=== PATIENT | male | born 1960 | race African-American/Black ===

== ENCOUNTER 2024-05-05 21:14 | Inpatient (IN) | payer BC, SELFPAY ==
[2024-05-05] VITALS (9 sets, daily range): BP systolic 132–169; BP diastolic 76–131; BMI 25.8; BMI 25.0
[2024-05-05 16:26] LABS: % Basophils 0.2 % (0-2); % Eosinophils 0.7 % (0-6); % Immature Granulocytes 0.4 % (0-0.5); % Lymphocytes 15.2 % (20.5-51.1); % Monocytes 6.6 % (1.7-9.3); % Neutrophils 76.9 % (42.2-75.2); Absolute Eosinophils 0.1 10^3/uL (0-0.7); Absolute Lymphocytes 1.5 10^3/uL (1.2-3.4); Absolute Monocytes 0.7 10^3/uL (0.1-0.6); Absolute Neutrophils 7.7 10^3/uL (1.4-6.5); Hematocrit 45.4 % (39.0-52.0); Hemoglobin 16.1 g/dL (13.0-18.0); Mean Corp Hgb Conc. 35.5 g/dL (33.0-37.0); Mean Corpuscular Hgb 32.5 pg (27.0-31.0); Mean Corpuscular Volume 91.5 fL (80.0-94.0); Nucleated Red Blood Cells % 0 % (-); Platelet Count 208 10^3/uL (130-400); Red Blood Cell Count 4.96 10^6/uL (4.70-6.10); Red Cell Dist. Width 12.4 % (11.5-14.5)
[2024-05-05 16:49] LABS: ALT (SGPT) 84 U/L (0-50); AST (SGOT) 46 U/L (17-59); Alkaline Phosphatase 119 U/L (38-126); Blood Urea Nitrogen 15 mg/dl (9-20); Calcium 10.5 mg/dl (8.4-10.2); Carbon Dioxide 21 mmol/L (22-30); Chloride 106 mmol/L (98-107); Glucose 106 mg/dl (70-99); Lipase 31 U/L (23-300); Potassium 3.7 mmol/L (3.5-5.1); Sodium 141 mmol/L (135-145); eGFR > 60.00
[2024-05-05] MEDS: NSS 1000 IV ×2 (17:22→20:31)
[2024-05-05] MEDS: DILAUDID 0.5 MG IV ×2 (17:23→18:37)
--- NOTE | 2024-05-05 17:23 | ED.GENMED ---
History of Present Illness
General
Chief Complaint: Abdominal Symptoms
Source: patient and spouse
Exam Limitations: none
Time Seen by Provider: 05/05/24 17:06
Nursing documentation reviewed up to this point in time: agreed with
History of Present Illness
History of Present Illness:
63-year-old male with past medical history of hypertension, hyperlipidemia, prior hernia repair presents to the emergency room for evaluation of abdominal pain. Symptoms started this morning and have been constant and worsening since that time.
Pain located periumbilical region and radiates diffusely. No clear triggering or relieving factors noted. He did have diarrhea earlier this morning but since then has not been able to pass gas and has not had additional bowel movement. He has
been dry heaving but no vomiting prior to arrival here; shortly after arrival in the ER he did have large-volume emesis. Reports stomach was mildly unsettled yesterday but symptoms essentially started today. He has had issues with digestion in the
past is on Creon and omeprazole and has been following with GI through [facility].
Review of Systems
Review of Systems
All Other Systems: ROS reviewed and negative except as documented in HPI and ROS
Constitutional: Denies fever or chills
Respiratory: Denies trouble breathing
Cardiac: Denies chest pain
ABD/GI: Reports abdominal pain, nausea, vomiting and diarrhea
: Denies flank pain
Musculoskeletal: Denies neck pain or back pain
Neurological: Denies headache
Phy Exam
Physical Exam
Physical Exam:
General: Awake, alert, appears uncomfortable moaning in pain
Head: Normocephalic, atraumatic
Eyes: Conjunctiva normal, sclera anicteric
Throat: Airway intact, handling secretions
Neck: Trachea midline
Lungs: Clear to auscultation bilaterally, no wheezing, rales, rhonchi
Heart: Regular rate and rhythm, no murmurs, gallops, or rubs
Abd: Soft, mildly distended and tympanic, diffusely tender maximal in the epigastrium with no palpable masses
Neuro: No gross deficits
Extremities: No edema in extremities, warm and well-perfused
Scores
Heart Failure Risk
Heart Failure Risk Score: Not Applicable
Heart Score for Chest Pain Patients
STEMI patient?: Not applicable
Withdrawal Assessment of Alcohol
Withdrawal Assessment Completed?: Not applicable
Course
Orders/Labs/Results
Orders:
Orders
05/05/24 16:17
Complete Blood Count/With Diff Urgent
Comprehensive Metabolic Panel Urgent
Lipase Urgent
05/05/24 17:13
CT Abd/pelvis W Iv Cont Urgent
Comment:
Reason For Exam: abd pain, diffuse tenderness; constipation
Urinalysis Reflex To Culture Urgent
0.9% Sodium Chloride 1000 ml [Nss] 1,000 ml IV BOLUS
HYDROmorphone [Dilaudid] 0.5 mg IV NOW STA
05/05/24 17:14
CR Chest Portable - 1 View Urgent
Comment:
Reason For Exam: r/o free air
Reason Study Needs to be Portable: Unable to Transport
05/05/24 17:22
Ondansetron Injectable [Zofran] 4 mg IV NOW STA
05/05/24 18:29
NG Tube [GI tube insertion- Treatment] ONCE
HYDROmorphone [Dilaudid] 0.5 mg IV NOW STA
05/05/24 18:32
Lactate Level [Lactic Acid] Urgent
05/05/24 18:45
0.9% Sodium Chloride 1000 ml [Nss] 1,000 ml IV 125 mls/hr
05/05/24 19:03
CR Chest Portable - 1 View Urgent
Comment:
Reason For Exam: NG tube
Reason Study Needs to be Portable: Unable to Transport
Abnormal Lab Results
05/05/24
16:17
MCH 32.5 H pg
(27.0-31.0)
Absolute Neuts (auto) 7.7 H 10^3/uL
(1.4-6.5)
Absolute Monos (auto) 0.7 H 10^3/uL
(0.1-0.6)
Neutrophils % 76.9 H %
(42.2-75.2)
Lymphocytes % 15.2 L %
(20.5-51.1)
Carbon Dioxide 21 L mmol/L
(22-30)
Glucose 106 H mg/dl
(70-99)
Calcium 10.5 H mg/dl
(8.4-10.2)
ALT 84 H U/L
(0-50)
05/05/24 16:17
05/05/24 16:17
Vital Signs
Initial and Last Documented VS:
Initial Vital Signs
Temp Pulse Resp BP Pulse Ox
36.9 C 78 18 161/131 100
05/05/24 15:56 05/05/24 15:56 05/05/24 15:56 05/05/24 15:56 05/05/24 15:56
Last Documented Vital Signs
Temp Pulse Resp BP Pulse Ox
36.9 C 81 15 145/83 100
05/05/24 15:56 05/05/24 18:15 05/05/24 17:53 05/05/24 18:00 05/05/24 18:15
MDM/Problems Addressed
Differential Diagnosis Includes:
Perforated viscus (perforated ulcer, bowel perforation,etc), bowel obstruction, pancreatitis, cholelithiasis/cholecystitis
MDM/Problems Addressed:
63-year-old male presents for evaluation of abdominal pain associate with nausea, vomiting; had diarrhea this morning but since then has not passed gas or bowel movement. Hypertensive otherwise normal vitals. Physical exam as above. Call for stat
chest x-ray to rule out free air. Place IV send labs including CBC and a CMP, lipase. Send for CT abdomen pelvis. Provide fluids, pain control, antiemetic. Monitor very closely reassess after the above.
Labs reviewed: CBC and CMP no clinically significant abnormalities. Chest x-ray shows no free air. CT pending.
CT shows small bowel obstruction. Repeat pain medication. Place NG tube. Continue fluids. Discussed with hospitalist for admission.
*Radiology
Radiology exam reviewed: preliminary read by ED provider and radiology read reviewed
*Pulse Oximetry
Patient hypoxic: no
*Critical Care Note
Total Time (30-74mins, 75-104mins- exclusive of procedures): Not Applicable
Data Reviewed
Source: patient and spouse
Patient Management
Discussion with other providers: Hospitalist (Discussed with hospitalist)
Escalation/DeEscalation of care consider admission/obs:
Admission indicated
ED Attending Note
-
Portions of this chart may have been created with voice recognition software.� Occasional wrong word or��sound alike� substitutions may have occurred due to the inherent limitations of voice recognition software.
Discharge Plan
Departure
Patient Disposition: Admit
Date of Disposition: 05/05/24
Time of Disposition: 18:32
Admit to doctor: Harper
Presentation/result/management discussed w/ accepting MD/DO: Hospitalist
Discharge Problem:
Small bowel obstruction
Prescriptions:
No Action
atorvastatin 20 mg Tablet
20 mg PO DAILY
metoprolol succinate 25 mg Tablet Extended Release 24 Hr
25 mg PO DAILY
omeprazole 20 mg Tablet,Delayed Release (Dr/Ec)
20 mg PO DAILY
Creon 36,000-114,000- 180,000 unit Capsule,Delayed Release(Dr/Ec)
2 cap PO TID
Patient Comments:
take 2 caps by mouth with each meal and 1 cap by moouth with snack
Referrals:
Zion Machado MD [Family Provider] -
Interventions
Interventions:
*Risk Screen - Suicide Last Done: 05/05/24 15:56
*General Assessment Last Done: 05/05/24 15:56
*ED- Fall Risk Assessment Last Done: 05/05/24 15:56
*ED COVID-19 Vaccine History Last Done: 05/05/24 15:56
ZA-Xqpnck-Jmlqmzzkor Assessment Last Done: 05/05/24 17:08
Discharge Date and Time
Print Language: MALTESE
[2024-05-05] MEDS: ZOFRAN 4 MG IV ×2 (17:27→19:17)
[2024-05-05 19:33] LABS: Lactic Acid 1.8 mmol/L (0.7-2.0)
--- NOTE | 2024-05-05 19:39 | HPS.HSE ---
Family Physician
-
Family Physician: Zion Machado
Chief Complaint
-
stomach pain
History of Present Illness
Patient is a 63-year-old male with past medical history significant for hypertension and hyperlipidemia who presented to [facility] ED for evaluation of stomach pain. Patient stated that he has been having stomach and bowel problems for a
few months, he is seeing a GI doctor in [place] and could not remember his name. He has been having recurrent diarrhea where he has been using Creon and PRN psyllium powder and/or Imodium. Patient reports that he felt his stomach had mild
discomfort yesterday but got significant worse today. He reports pain in the periumbilical area but does report it radiates all over. Nausea was associated with the discomfort but did not have episodes of vomiting at home. He did have diarrhea this
morning and took psyllium powder and Imodium. Following taking those medications the abdominal pain became severe and he came to ED for evaluation. Patient denies any recent fevers, chills, cough, shortness of breath, chest pain, or urinary
symptoms.
Medical History
Past Medical History
Past Medical History: Reports Other
Additional Past Medical History:
hypertension
hyperlipidemia
Past Surgical History: Reports Other
Additional Past Surgical History:
hernia repair
Social History
Tobacco: Former Smoker (quit 30 years ago )
Alcohol: Former (sober for 4 years )
Drug: None
Personal:
Living: With Family
Employment: Employed
Family History
Family History: Other (Father: CKD; Brother: kidney transplant; Maternal family with CVAs)
Allergies / Home Medications
Allergies reflects when Allergies were last updated in [facility].
Home Medications with original date entered in [facility]
Allergy/Medication List:
Allergies
Allergy/AdvReac Type Severity Reaction Status Date / Time
No Known Allergies Allergy Verified 05/05/24 17:04
Home Medications
atorvastatin 20 mg tablet 20 mg PO DAILY 05/05/24
sxatlq-utfxseay-gqxlhoo 36,000-114,000-180,000 unit capsule,delay rel (Creon) 2 cap PO TID 05/05/24
metoprolol succinate 25 mg tablet,extended release 24 hr 25 mg PO DAILY 05/05/24
omeprazole 20 mg tablet,delayed release 20 mg PO DAILY 05/05/24
Review of Systems
-
History Source: Patient
Constitutional: Reports No Symptoms
EENT: Reports No Symptoms
Respiratory: Reports No Symptoms
Cardiac: Reports No Symptoms
Abdomen/GI: Reports Abdominal Pain, Nausea, Vomiting and Diarrhea
: Reports No Symptoms
Musculoskeletal: Reports No Symptoms
Skin: Reports No Symptoms
Neurological: Reports No Symptoms
Endocrine: Reports No Symptoms
Hematologic/Lymphatic: Reports No Symptoms
Psych: Reports No Symptoms
Physical Exam
Vital Signs
Vital Signs
Temp Pulse Resp BP Pulse Ox
98.5 F 81 15 145/83 100
05/05/24 15:56 05/05/24 18:15 05/05/24 17:53 05/05/24 18:00 05/05/24 18:15
Physical Exam
General: Well Developed, Well Nourished, No Apparent Distress and Conversant
HEENT: NormoCephalic, Moist mucous membranes, Atraumatic, PERRLA, [place] Conjunctivae, Nose Appears Normal and Ears Appear Normal
Respiratory: Clear and Non Labored Respirations
Cardiac: S1/S2 and Regular Rhythm; No Murmur, Rub or Gallop
GI: Soft, Tender and Distended (mildly ); No Organomegaly
Rectal: Deferred by Provider
Genito-urinary: Deferred by me
Musculoskeletal: No Clubbing, No Cyanosis and No Edema
Skin: Warm and IV/Catheter Site; No Rash
Neuro: Awake, Alert, AO x 3 and Nonfocal/grossly intact
Psych: Calm and Intact Judgment/Insight
Laboratory Results
-
05/05/24 16:17
05/05/24 16:17
Laboratory Results
Lactic Acid 1.8 mmol/L (0.7-2.0) 05/05/24 19:16
Total Bilirubin 1.0 mg/dl (0.2-1.3) 05/05/24 16:17
AST 46 U/L (17-59) 05/05/24 16:17
ALT 84 U/L (0-50) H 05/05/24 16:17
Alkaline Phosphatase 119 U/L (38-126) 05/05/24 16:17
Lipase 31 U/L (23-300) 05/05/24 16:17
Data Reviewed
-
Diagnostic Radiology: Report Reviewed by me (CXR: No acute cardiopulmonary process. NG tube in stomach.)
CT Scan: Report Reviewed by me (Abd/Pel: 1. Distal small bowel obstruction likely secondary to adhesion.)
Lab Data: Labs Reviewed by me
Impression/Plan
-
IMPRESSION/PLAN:
#small bowel obstruction
Abd/Pel CT: 1. Distal small bowel obstruction likely secondary to adhesion.
CXR: No acute cardiopulmonary process. NG tube in stomach.
- Admit to med/surg
- NPO
- NGT
- Consult surgery
- IVF
- supportive care
#hypertension
- continue metoprolol
#hyperlipidemia
- continue atorvastatin
Code status: full code
DVT prophylaxis: SCDs
--- NOTE | 2024-05-05 20:37 | W.PN.UPDATE ---
Update Note
Progress Note Update
This is an addendum to the H&P written by Roxana Escalante on 05/05/2024. Patient seen and examined independently with CLINICAL STATISTICS MANAGER.
63-year-old male past medical history of hypertension, hypercholesteremia, right inguinal hernia repair, presenting with periumbilical abdominal pain for the past week. For the past few months he has been having diarrhea for which she has been
following [facility] who prescribed Creon with some improvement. He had vomiting today and a small bowel movement this morning.
CT abdomen pelvis shows distal small bowel obstruction likely secondary to adhesion. NG tube placed. N.p.o., IV fluids, Zofran/Dilaudid, general surgery consulted.
[2024-05-05] MEDS: HURRICAINE SPRAY 1 APPLIC TOPICAL (20:45)
--- NOTE | 2024-05-05 22:00 | PTCARENOTE ---
83-year-old male arrived from ED at 21:40 PMH of hypertension, hypercholesteremia, right inguinal hernia repair, presenting with periumbilical abdominal pain for the past week. For the past few months he has been having diarrhea for which she has
been following [facility] who prescribed Creon with some improvement. He had vomiting today and a small bowel movement this morning.CT abdomen pelvis shows distal small bowel obstruction likely secondary to adhesion. NG tube placed. N.P.O., IV
fluids, Zofran/Dilaudid, general surgery consulted. PT AOX3, HOB elevated above 30 degrees, bed in a low position, call light in reach, care on going.
[2024-05-06] MEDS: NSS 1000 IV ×2 (03:15→09:56)
[2024-05-06 07:08] VITALS: BP 140/78
--- NOTE | 2024-05-06 07:10 | PTCARENOTE ---
Pt repeatedly told me he could not urinate. I sent tech in to b/s pt and told her I was going to have to get an order to [place] him if he could not go & I needed a sample . He was able to void this time & she told me she sent the sample. When I saw that
the incomplete was still showing for urine I asked her again and she said she misunderstood & flushed his urine output. Dayshift nurse aware the urine still needs to be collected.
--- NOTE | 2024-05-06 08:08 | CON.GS ---
Medical History
-
Chief Complaint: Abdominal pain, nausea, vomiting
History of Present Illness:
Patient is a 63 yo M with a PMH of HTN, HLD, and s/p open RIGHT inguinal hernia repair with mesh who presents with acute on chronic GI issues. Mr. Mulligan states that he has had issues with diarrhea for several months now. He has been followed as an
outpatient by a GI physician at [place]. Details of outpatient workup are largely unknown, however, sounds as though he has had a colonoscopy which was unremarkable and a recent CT scan with oral and IV contrast. Mr. Mulligan denies any note of a
bowel obstruction with the prior CT scan. He has been managed medically with Creon, psyllium, and Imodium as needed. He states that over the past week he has had worsening crampy abdominal pain and discomfort. In retrospect, he has been taking
both psyllium and Imodium together which she has not done previously. Over the past 24 hours he has had worsening issues with crampy abdominal discomfort, nausea, vomiting. His last bowel movement and passage of flatus was yesterday morning.
Currently he feels improved, but not completely resolved. No fevers or chills. He denies any personal or family history of IBD or colon cancers.
Past Medical History
Past Medical History: HTN, Hypercholesterolemia and Other (Chronic diarrhea)
Past Surgical History: Hernia Repair (Open RIGHT inguinal hernia)
Social History
Tobacco: Former Smoker (Quit years ago)
Alcohol: Former (Quit 4 years ago)
Drug: None
Personal:
Living: With Family
Employment: Employed
Family History
Family History: Reviewed & Noncontributory
Allergies / Home Medications
Allergy/AdvReac Type Severity Reaction Status Date / Time
No Known Allergies Allergy Verified 05/05/24 17:04
�Medication �Instructions �Recorded �Confirmed �Type
atorvastatin 20 mg tablet 20 mg PO DAILY High Cholesterol 05/05/24 05/05/24 History
afwzfx-aacufich-bogmulw 2 cap PO TID Gastrointestinal Issue 05/05/24 05/05/24 History
36,000-114,000-180,000 unit
capsule,delay rel (Creon)
metoprolol succinate 25 mg 25 mg PO DAILY Heart 05/05/24 05/05/24 History
tablet,extended release 24 hr Disease/Condition
omeprazole 20 mg tablet,delayed 20 mg PO DAILY Gastrointestinal 05/05/24 05/05/24 History
release Issue
Review of Systems
-
A 10 point review of systems was completed, and was negative except as per HPI.
Physical Exam
Vital Signs
Temp Pulse Resp BP Pulse Ox
97.7 F 70 18 140/78 96
05/06/24 07:08 05/06/24 07:08 05/06/24 07:08 05/06/24 07:08 05/06/24 07:08
05/05/24 05/06/24 05/07/24
06:59 06:59 06:59
Actual Weight 82.327 kg
Body Mass Index (BMI) 25.0
Lab Results
WBC 10.0 10^3/uL (4.8-10.8) 05/05/24 16:17
Hgb 16.1 g/dL (13.0-18.0) 05/05/24 16:17
Hct 45.4 % (39.0-52.0) 05/05/24 16:17
Plt Count 208 10^3/uL (130-400) 05/05/24 16:17
Abs Immat Gran (auto) 0.0 10^3/uL (0-0.05) 05/05/24 16:17
Neutrophils % 76.9 % (42.2-75.2) H 05/05/24 16:17
Physical Exam
General: Well Developed, Well Nourished and No Apparent Distress
HEENT: Normocephalic, Anicteric and Other (NGT with non-bilious outputs)
GI: Soft, Non Tender, Distended (Mild, no tympany), Incisions (RLQ well healed) and Other (Non-peritoneal (no rebound or guarding))
Musculoskeletal: No Edema
Skin: Warm and Dry
Neuro: Nonfocal/Grossly Intact
Data Reviewed
-
Radiology: Image Personally Visualized and interpreted and Report Reviewed by me
CT Scan: Image Personally Visualized and interpreted and Report Reviewed by me
Labs: Labs Reviewed by me
Old Records: Reviewed
Assessment / Plan
-
Patient is a 63 yo M p/w SBO
Uncertain exact etiology, possibly secondary to adhesions though no prior abdominal surgical procedure. Symptoms appear to be more chronic in nature with a slow buildup and potentially worsening over the past week with taking antidiarrheal
medications. His CT scan demonstrates fecalization of the small bowel which further supports the more chronic nature of his presentation. Prior workup and management as an outpatient is unclear; request documentation from his GI physician. Signs
of symptomatic improvement. No plans for surgical intervention at this time. Recommend medical management with bowel rest and IVF resuscitation. If no symptomatic improvement by tomorrow then would plan for a SBFT. All questions answered.
-- NPO, IVF, NGT decompression
-- Hold on bowel meds
-- SBFT tomorrow if no clinical improvement
-- Request outpatient records from GI
[2024-05-06 08:34] LABS: Hematocrit 38.2 % (39.0-52.0); Hemoglobin 13.4 g/dL (13.0-18.0); Mean Corp Hgb Conc. 35.1 g/dL (33.0-37.0); Mean Corpuscular Hgb 33.3 pg (27.0-31.0); Mean Corpuscular Volume 94.8 fL (80.0-94.0); Mean Platelet Volume 9.2 fL (7.4-10.4); Platelet Count 181 10^3/uL (130-400); Red Blood Cell Count 4.03 10^6/uL (4.70-6.10); Red Cell Dist. Width 12.5 % (11.5-14.5); White Blood Cell Count 4.9 10^3/uL (4.8-10.8)
[2024-05-06 08:56] LABS: Blood Urea Nitrogen 12 mg/dl (9-20); Calcium 9.2 mg/dl (8.4-10.2); Carbon Dioxide 23 mmol/L (22-30); Chloride 110 mmol/L (98-107); Estimated Creatinine Clearance 67 ml/min; Glucose 93 mg/dl (70-99); Potassium 3.9 mmol/L (3.5-5.1); Sodium 141 mmol/L (135-145); eGFR > 60.00
[2024-05-06] MEDS: HURRICAINE SPRAY 1 APPLIC TOPICAL ×2 (09:56→21:43)
[2024-05-06 10:59] LABS: Urine Albumin Negative (Neg - Trace); Urine Bilirubin Negative (Negative); Urine Character Clear (Clear); Urine Color Yellow; Urine Glucose Negative (Negative); Urine Ketone 1+ (Negative); Urine Leukocyte Negative (Negative); Urine Nitrite Negative (Negative); Urine Occult Blood Negative (Negative); Urine Specific Gravity 1.015 (<1.030); Urine Urobilinogen Negative (Neg - 1+)
--- NOTE | 2024-05-06 12:36 | W.PN.HOSP.TC ---
Today's Communication/Plan
-
npo
ivf
ngt
Assessment / Plan
Assessment / Plan
General: Well Developed, Well Nourished, No Apparent Distress and Conversant
HEENT: NormoCephalic, Moist mucous membranes, Atraumatic, PERRLA, [place] Conjunctivae, Nose Appears Normal and Ears Appear Normal
Respiratory: Clear and Non Labored Respirations
Cardiac: S1/S2 and Regular Rhythm; No Murmur, Rub or Gallop
GI: Soft, Tender and Distended (mildly ); No Organomegaly, NGT noted
Musculoskeletal: No Clubbing, No Cyanosis and No Edema
Skin: Warm and IV/Catheter Site; No Rash
Neuro: Awake, Alert, AO x 3 and Nonfocal/grossly intact
Psych: Calm and Intact Judgment/Insight
#Small bowel obstruction likely 2/2 adhesions
Abd/Pel CT: 1. Distal small bowel obstruction likely secondary to adhesion.
CXR: No acute cardiopulmonary process. NG tube in stomach.
- NPO
- NGT
- IVF switch to LR. Decrease rate.
- Pain control.
- supportive care
-GS following. SBFT if no improvement noted
#hypertension
- IV prn bp meds
#hyperlipidemia
-hold po meds
Code status: full code
DVT prophylaxis: lovenox
d/w with spouse at bedside in details
Anticipated Discharge: > 48 hours
Subjective/Interval History
-
Date of Service: May 06, 2024
no flatulence or bm
denies abd pain
Objective Data
-
Labs:
Laboratory Results
05/06/24
08:01
WBC 4.9
Hgb 13.4
Hct 38.2 L
Plt Count 181
Sodium 141
Potassium 3.9
Chloride 110 H
Carbon Dioxide 23
BUN 12
Creatinine 1.2
Glucose 93
Calcium 9.2
Vital Signs:
Vital Signs
Temp Pulse Resp BP Pulse Ox
97.7 F 70 18 140/78 96
05/06/24 07:08 05/06/24 07:08 05/06/24 07:08 05/06/24 07:08 05/06/24 07:08
I&O
05/05/24 05/06/24 05/07/24
06:59 06:59 06:59
Intake Total 90 / 90
Output Total 275 / 325 50 / 50
Balance -275 / -235 40 / 40
[2024-05-06] MEDS: DILAUDID 0.5 MG IV ×2 (12:37→21:39)
[2024-05-06] MEDS: LR 1000 IV ×2 (12:46→22:43)
[2024-05-06 15:21] VITALS: BP 146/75
--- NOTE | 2024-05-06 15:50 | CM ---
Met with pt at bedside
IA completed
Pt lives with his in a 2 story condo; 2 steps to enter, 12 steps to 2nd fl
Independent, employed, drives
DME - none
SNF/HH - denies past hx
Has ride at D/C
PCP - Zion Machado
Pharm - [facility]
Plan - anticipate home no needs
[2024-05-06] MEDS: LOVENOX 40 MG SC (17:34)
[2024-05-06 23:48] VITALS: BP 125/68
[2024-05-07 07:20] VITALS: BP 140/83
--- NOTE | 2024-05-07 08:10 | PTCARENOTE ---
NGT removed per surgery during AM rounds. pt tolerted well. No c/O pain or nausea. trial CLD
--- NOTE | 2024-05-07 08:11 | CON.GS ---
Medical History
-
Chief Complaint: Abdominal pain, nausea, vomiting
History of Present Illness:
Patient is a 63-year-old male who presented to the emergency department with complaints of abdominal pain, nausea, and vomiting. He has a past medical history of hypertension, hyperlipidemia, s/p right open inguinal hernia repair with mesh, and
chronic GI issues. The patient has been contending with issues involving diarrhea for several months now. Patient denied any fever or chills. Patient denied any personal or family history of IBD or colon cancer. He is being followed by an
outpatient telesales agent in [place] - unfortunately his outpatient workup is unknown and we have requested records. He has been managed medically with Creon, psyllium fiber, and Imodium as needed. He believes that he had a CT of the abdomen
done prior to his presentation to the emergency department and he believes that CT scan did not show any bowel obstruction. Over the past week prior to his presentation to the emergency department he had worsening crampy abdominal pain and
discomfort. He had been taking both psyllium fiber and Imodium together which he did not do in the past and he believes that this might have been one of the causes that pushed him over the edge leading to his presentation to the emergency
department. Over the past 24 hours prior to his presentation he had crampy abdominal discomfort, nausea, and vomiting. His last bowel movement prior to his presentation was the morning prior to his arrival. By the time he arrived to the emergency
department his acute nausea and vomiting had improved but not completely resolved. In the emergency department his vitals were stable and lab work was unremarkable. Abdominal CT conducted in the emergency department showed distal small bowel
obstruction. Patient was admitted to [facility] for small bowel obstruction.
Past Medical History
Past Medical History: HTN, Hypercholesterolemia and Other (Chronic diarrhea)
Past Surgical History: Hernia Repair (Open RIGHT inguinal hernia)
Social History
Tobacco: Former Smoker (Quit years ago)
Alcohol: Former (Quit 4 years ago)
Drug: None
Personal:
Living: With Family
Employment: Employed
Family History
Family History: Reviewed & Noncontributory
Allergies / Home Medications
Allergy/AdvReac Type Severity Reaction Status Date / Time
No Known Allergies Allergy Verified 05/05/24 17:04
�Medication �Instructions �Recorded �Confirmed �Type
atorvastatin 20 mg tablet 20 mg PO DAILY High Cholesterol 05/05/24 05/05/24 History
[id number] 2 cap PO TID Gastrointestinal Issue 05/05/24 05/05/24 History
36,000-114,000-180,000 unit
capsule,delay rel (Creon)
metoprolol succinate 25 mg 25 mg PO DAILY Heart 05/05/24 05/05/24 History
tablet,extended release 24 hr Disease/Condition
omeprazole 20 mg tablet,delayed 20 mg PO DAILY Gastrointestinal 05/05/24 05/05/24 History
release Issue
Review of Systems
-
History Source: Patient
Constitutional: No Symptoms and Fatigue
EENT: No Symptoms
Respiratory: No Symptoms
Cardiac: No Symptoms
Abdomen/GI: Other (mild bloating with no pain)
: No Symptoms
Musculoskeletal: No Symptoms
Skin: No Symptoms
Neurological: No Symptoms
Subjective:
Patient feels better today but is complaining about irritation from his NGT. It bothers him when he swallows. Late afternoon yesterday he passed a joe stool that was not hard but normal consistency. There was no blood seen in the stool. Patient
has been passing flatus throughout yesterday afternoon into the evening and into the morning. Patient has gotten up and out of bed in order to go to the bathroom but has not done much physical activity outside of this. He continues to sip at ice
chips.
Physical Exam
Vital Signs
Temp Pulse Resp BP Pulse Ox
98.2 F 72 16 140/83 99
05/07/24 07:20 05/07/24 07:20 05/07/24 07:20 05/07/24 07:20 05/07/24 07:20
05/06/24 05/07/24 05/08/24
06:59 06:59 06:59
Actual Weight 82.327 kg
Body Mass Index (BMI) 25.0
Lab Results
05/06/24 08:01
WBC 4.9 10^3/uL (4.8-10.8) 05/06/24 08:01
Hgb 13.4 g/dL (13.0-18.0) 05/06/24 08:01
Hct 38.2 % (39.0-52.0) L 05/06/24 08:01
Plt Count 181 10^3/uL (130-400) 05/06/24 08:01
Abs Immat Gran (auto) 0.0 10^3/uL (0-0.05) 05/05/24 16:17
Neutrophils % 76.9 % (42.2-75.2) H 05/05/24 16:17
Physical Exam
General: Well Developed, Well Nourished, No Apparent Distress and Comfortable
HEENT: Normocephalic
Respiratory: Clear
Cardiac: S1/S2; Negative Murmur or Rub
GI: Soft, Non Tender, Non Distended and Normal Bowel Sounds
Rectal: Other (Pale/letty colored stool)
Musculoskeletal: No Clubbing, No Cyanosis and No Edema
Skin: Warm and Dry; Negative Rash or Jaundice
Neuro: Awake, Alert, Oriented and AO x 3
Psych: Calm
Assessment / Plan
-
Patient is a 63-year-old male who presented with small bowel obstruction.
Assessment/Plan:
-Small Bowel Obstruction:
Abdomen/pelvis CT conducted on 05/05/2024 showed dilated fluid-filled small bowel loops of the abdomen measuring up to 3.5 cm with a transition point in the low anterior right paramidline abdomen. No evidence of perforation or abscess. CT scan
demonstrates fecalization of the small bowel which supports chronic nature of his presentation. Possibly due to adhesions.
Patient is followed by an outpatient telesales agent�workup is unclear -awaiting outpatient records for further data
Patient shows signs of symptomatic improvement -no surgical intervention indicated
Patient was initially given bowel rest and IV resuscitation and has shown improvement
Discontinue NGT -unlikely that SBFT will be indicated
Continue to hold off bowel medications
Antiemetics and pain medication as needed
We have advanced the patient's diet from n.p.o. to clear liquids -if patient tolerates his advance diet we will reassess and continue to progress his diet
No plans for surgery currently
[2024-05-07] MEDS: LR 1000 IV (09:42)
--- NOTE | 2024-05-07 09:42 | W.PN.GS2 ---
Addendum entered and electronically signed by Pako Blanchard MD 05/07/24 09:59:
Patient seen and examined.
Reports improvement from yesterday. Passing flatus and had a nonbloody, rf microwave engineer appearing BM. No nausea or vomiting. No increased abdominal distention. No fevers.
Gen: NAD
HEENT: NGT output non-bilious
Abd: soft, NT/ND, no tympany, non-peritoneal
Patient is a 63 yo M p/w partial bowel obstruction, acute on chronic likely secondary to dysmotility and bowel meds
AVSS
Labs pending
Clinical improvement. Plan to DC NGT and trial clears. If any further issues would recommend a contrasted study.
-- DCT NGT
-- Trial of clears, if recurrence of symptoms would recommend contrast study
-- OOB/ambulate
-- Correct lytes, minimize narcotics
-- No plans for surgical intervention at this point in time
Original Note:
Today's Communication / Plan
-
Patient has been advanced from n.p.o. to clear liquids. If patient tolerates this advance diet we will reassess and continue to progress his diet. No plans for surgery currently.
Assessment / Plan
-
Patient is a 63-year-old male who presented with small bowel obstruction.
Assessment/Plan:
-Small Bowel Obstruction:
Abdomen/pelvis CT conducted on 05/05/2024 showed dilated fluid-filled small bowel loops of the abdomen measuring up to 3.5 cm with a transition point in the low anterior right paramidline abdomen. No evidence of perforation or abscess. CT scan
demonstrates fecalization of the small bowel which supports chronic nature of his presentation. Possibly due to adhesions.
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
Patient shows signs of symptomatic improvement -no surgical intervention indicated
Patient was initially given bowel rest and IV resuscitation and has shown improvement
Discontinue NGT -unlikely that SBFT will be indicated
Continue to hold off bowel medications
Antiemetics and pain medication as needed
We have advanced the patient's diet from n.p.o. to clear liquids -if patient tolerates his advance diet we will reassess and continue to progress his diet
No plans for surgery currently
Subjective Data
-
Date of Service: May 07, 2024
Patient feels better today but is complaining about irritation from his NGT. It bothers him when he swallows. Late afternoon yesterday he passed a joe stool that was not hard but normal consistency. There was no blood seen in the stool. Patient
has been passing flatus throughout yesterday afternoon into the evening and into the morning. Patient has gotten up and out of bed in order to go to the bathroom but has not done much physical activity outside of this. He continues to sip at ice
chips.
Objective Data
-
Intake and Output
05/06/24 05/07/24 05/08/24
06:59 06:59 06:59
Intake Total 2700 / 2700
Output Total 275 / 325 600 / 600
Balance -275 / -235 2099 / 2099
Intake:
IV fluids (Total) 2400 / 2400
Amount instilled into GI Tube ( 300 / 300
Total)
[place] Sump 300 / 300
Output:
Gastrointestinal tube output ( 600 / 600
Total)
[place] Sump 600 / 600
Urine, Voided 275 / 275
Other:
Number of approximated MODERATE 2
amounts of urine
Vital Signs
Temp Pulse Resp BP Pulse Ox
98.2 F 72 16 140/83 95
05/07/24 07:20 05/07/24 07:20 05/07/24 07:20 05/07/24 07:20 05/07/24 09:05
Lab Results
05/06/24 08:01
Calcium 9.2 mg/dl (8.4-10.2) 05/06/24 08:01
Total Bilirubin 1.0 mg/dl (0.2-1.3) 05/05/24 16:17
AST 46 U/L (17-59) 05/05/24 16:17
ALT 84 U/L (0-50) H 05/05/24 16:17
Alkaline Phosphatase 119 U/L (38-126) 05/05/24 16:17
Total Protein 8.0 g/dl (6.3-8.2) 05/05/24 16:17
Albumin 5.0 g/dl (3.5-5.0) 05/05/24 16:17
Physical Exam
-
General: Well Developed, Well Nourished, No Apparent Distress and Comfortable
HEENT: Normocephalic
Respiratory: Clear
Cardiac: S1/S2; Negative Murmur or Rub
GI: Soft, Non Tender, Non Distended and Normal Bowel Sounds
Rectal: Other (Pale/letty colored stool)
Musculoskeletal: No Clubbing, No Cyanosis and No Edema
Skin: Warm and Dry; Negative Rash or Jaundice
Neuro: Awake, Alert, Oriented and AO x 3
Psych: Calm
Patient has a morales catheter: No
Patient has a central line: No
[2024-05-07 10:45] LABS: Blood Urea Nitrogen 15 mg/dl (9-20); Calcium 9.2 mg/dl (8.4-10.2); Carbon Dioxide 24 mmol/L (22-30); Chloride 107 mmol/L (98-107); Estimated Creatinine Clearance 73 ml/min; Glucose 76 mg/dl (70-99); Magnesium 1.7 mg/dl (1.6-2.3); Potassium 3.9 mmol/L (3.5-5.1); Sodium 138 mmol/L (135-145); eGFR > 60.00
--- NOTE | 2024-05-07 12:53 | W.PN.HOSP.TC ---
Today's Communication/Plan
-
monitor diet tolerance
clears
stop ivf if tolerating
po bp meds
oob
Assessment / Plan
Assessment / Plan
General: Well Developed, Well Nourished, No Apparent Distress and Conversant
HEENT: NormoCephalic, Moist mucous membranes, Atraumatic, PERRLA, [place] Conjunctivae, Nose Appears Normal and Ears Appear Normal
Respiratory: Clear and Non Labored Respirations
Cardiac: S1/S2 and Regular Rhythm; No Murmur, Rub or Gallop
GI: Soft, nontender, nondistended. Improved significantly from yesterday.
Musculoskeletal: No Clubbing, No Cyanosis and No Edema
Skin: Warm and IV/Catheter Site; No Rash
Neuro: Awake, Alert, AO x 3 and Nonfocal/grossly intact
Psych: Calm and Intact Judgment/Insight
#Small bowel obstruction likely 2/2 adhesions
Abd/Pel CT: 1. Distal small bowel obstruction likely secondary to adhesion.
CXR: No acute cardiopulmonary process. NG tube in stomach.
-Status post NG tube placement admission status post removal on 05/07
-Diet advanced to clears. If tolerating DC IV fluids
-Recommend out of bed ambulate. Avoid opioids if possible
-GS following. SBFT if no improvement noted
#hypertension
- IV prn bp meds
-Start p.o. metoprolol
#hyperlipidemia
-hold po meds
Code status: full code
DVT prophylaxis: lovenox
d/w with spouse at bedside in details 05/06/2024
Anticipated Discharge: 24 - 48 hours
Subjective/Interval History
-
Date of Service: May 07, 2024
States had bowel movement yesterday
Denies abdominal pain. Denies nausea or vomiting this morning
Objective Data
-
Labs:
Laboratory Results
05/07/24
09:41
Sodium 138
Potassium 3.9
Chloride 107
Carbon Dioxide 24
BUN 15
Creatinine 1.1
Glucose 76
Calcium 9.2
Vital Signs:
Vital Signs
Temp Pulse Resp BP Pulse Ox
98.2 F 72 16 140/83 95
05/07/24 07:20 05/07/24 07:20 05/07/24 07:20 05/07/24 07:20 05/07/24 09:05
I&O
05/06/24 05/07/24 05/08/24
06:59 06:59 06:59
Intake Total 2700 / 2700
Output Total 275 / 325 600 / 600
Balance -275 / -235 2099 / 2099
[2024-05-07] MEDS: TOPROL XL 25 MG PO (13:35)
[2024-05-07 15:15] VITALS: BP 134/76
[2024-05-07] MEDS: LOVENOX 40 MG SC (17:25)
[2024-05-07 23:02] VITALS: BP 118/67
[2024-05-08 07:05] VITALS: BP 118/68
[2024-05-08] MEDS: TOPROL XL 25 MG PO (07:55)
[2024-05-08] MEDS: PROTONIX 40 MG PO (07:56)
[2024-05-08 08:05] LABS: Blood Urea Nitrogen 11 mg/dl (9-20); Calcium 9.1 mg/dl (8.4-10.2); Carbon Dioxide 30 mmol/L (22-30); Chloride 107 mmol/L (98-107); Estimated Creatinine Clearance 73 ml/min; Glucose 96 mg/dl (70-99); Sodium 141 mmol/L (135-145); eGFR > 60.00
--- NOTE | 2024-05-08 10:17 | W.PN.GS2 ---
Addendum entered and electronically signed by Moy Azul MD 05/08/24 10:35:
I saw and examined the patient.
The resident's note was reviewed and I agree with the note.
Comment: AFVSS, passing stool and flatus, denies abd pain, denies n/v, jose CLD. Belly exam soft, nt, very mild distention. Adv to FLD
Original Note:
Today's Communication / Plan
-
We will be advancing this patient's diet to full clear liquids. If patient tolerates this advanced diet we will reassess and continue to progress his diet. No plans for surgery currently.
Assessment / Plan
-
Patient is a 63-year-old male who presented with small bowel obstruction.
Assessment/Plan:
-Small Bowel Obstruction:
Abdomen/pelvis CT conducted on 05/05/2024 showed dilated fluid-filled small bowel loops of the abdomen measuring up to 3.5 cm with a transition point in the low anterior right paramidline abdomen. No evidence of perforation or abscess. CT scan
demonstrates fecalization of the small bowel which supports chronic nature of his presentation. Possibly due to adhesions.
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
Patient shows signs of symptomatic improvement -no surgical intervention indicated
Patient was initially given bowel rest and IV resuscitation and has shown improvement
NGT discontinued
Antiemetics and pain medication as needed
Patient has been tolerating his clear liquid diet -we will advance his diet to full liquids
No plans for surgery currently
Subjective Data
-
Date of Service: May 08, 2024
Met with patient at the bedside. He continues to make steady progress and did not have any nausea or vomiting symptom. He has been able to tolerate his thin liquid diet. He continues to pass flatus.
Objective Data
-
Intake and Output
05/07/24 05/08/24 05/09/24
06:59 06:59 06:59
Intake Total 2700 / 2700 1440 / 1440
Output Total 600 / 600
Balance 2100 / 2100 1440 / 1440
Intake:
Oral fluids 1440 / 1440
IV fluids (Total) 2400 / 2400
Amount instilled into GI Tube ( 300 / 300
Total)
[place] Sump 300 / 300
Output:
Gastrointestinal tube output ( 600 / 600
Total)
[place] Sump 600 / 600
Other:
Number of approximated MODERATE 2 1
amounts of urine
Vital Signs
Temp Pulse Resp BP Pulse Ox
98.5 F 62 16 118/68 98
05/08/24 07:05 05/08/24 07:55 05/08/24 07:05 05/08/24 07:55 05/08/24 08:52
Lab Results
05/06/24 08:01
05/08/24 06:26
Calcium 9.1 mg/dl (8.4-10.2) 05/08/24 06:26
Magnesium 1.7 mg/dl (1.6-2.3) 05/07/24 09:41
Total Bilirubin 1.0 mg/dl (0.2-1.3) 05/05/24 16:17
AST 46 U/L (17-59) 05/05/24 16:17
ALT 84 U/L (0-50) H 05/05/24 16:17
Alkaline Phosphatase 119 U/L (38-126) 05/05/24 16:17
Total Protein 8.0 g/dl (6.3-8.2) 05/05/24 16:17
Albumin 5.0 g/dl (3.5-5.0) 05/05/24 16:17
Physical Exam
-
General: Well Developed, Well Nourished, No Apparent Distress and Comfortable
HEENT: Normocephalic
Respiratory: Clear
Cardiac: S1/S2; Negative Murmur or Rub
GI: Soft, Non Tender, Non Distended and Normal Bowel Sounds, nonperitoneal
Rectal: Other (Pale/letty colored stool)
Musculoskeletal: No Clubbing, No Cyanosis and No Edema
Skin: Warm and Dry; Negative Rash or Jaundice
Neuro: Awake, Alert, Oriented and AO x 3
Psych: Calm
Patient has a morales catheter: No
Patient has a central line: No
Patient has a morales catheter: No
Patient has a central line: No
--- NOTE | 2024-05-08 11:02 | W.PN.HOSP.TC ---
Addendum entered and electronically signed by Guido Machado MD 05/08/24 18:03:
Diet advanced to LRD. Pt tolerated it well. No nausea or vomiting.
More than 30 minutes spent in discharge including
Final examination of the patient
Summarizing hospital stay
Instructions for continuing care to all relevant caregivers
Preparation of discharge records, prescriptions, and referral forms
Total time spent (in minutes): 42
Original Note:
Today's Communication/Plan
-
diet tolerance
OOB ambulate
GS recs
home once diet advance/tolerating it
Assessment / Plan
Assessment / Plan
General: Well Developed, Well Nourished, No Apparent Distress and Conversant
HEENT: NormoCephalic, Moist mucous membranes, Atraumatic, PERRLA, [place] Conjunctivae, Nose Appears Normal and Ears Appear Normal
Respiratory: Clear and Non Labored Respirations
Cardiac: S1/S2 and Regular Rhythm; No Murmur, Rub or Gallop
GI: Soft, nontender, nondistended. Improved significantly from yesterday.
Musculoskeletal: No Clubbing, No Cyanosis and No Edema
Skin: Warm and IV/Catheter Site; No Rash
Neuro: Awake, Alert, AO x 3 and Nonfocal/grossly intact
Psych: Calm and Intact Judgment/Insight
#Small bowel obstruction likely 2/2 adhesions
Abd/Pel CT: 1. Distal small bowel obstruction likely secondary to adhesion.
CXR: No acute cardiopulmonary process. NG tube in stomach.
-Status post NG tube placement admission status post removal on 05/07
-Diet advanced to fulls. Can advanced to LRD once tolerating fulls.
-Recommend out of bed ambulate. Avoid opioids if possible
-GS following.
#Primary Hypertension
- IV prn bp meds
-Start p.o. metoprolol
-BP controlled 118/68
#hyperlipidemia
-hold po meds
Code status: full code
DVT prophylaxis: lovenox
d/w with spouse at bedside in details 05/06/2024
Anticipated Discharge: Within 24 hours
Subjective/Interval History
-
Date of Service: May 08, 2024
had bm yesterday
tolerating liquids
Objective Data
-
Labs:
Laboratory Results
05/08/24
06:26
Sodium 141
Potassium 4.0
Chloride 107
Carbon Dioxide 30
BUN 11
Creatinine 1.1
Glucose 96
Calcium 9.1
Vital Signs:
Vital Signs
Temp Pulse Resp BP Pulse Ox
98.5 F 62 16 118/68 98
05/08/24 07:05 05/08/24 07:55 05/08/24 07:05 05/08/24 07:55 05/08/24 08:52
I&O
05/07/24 05/08/24 05/09/24
06:59 06:59 06:59
Intake Total 2700 / 2700 1440 / 1440
Output Total 600 / 600
Balance 2099 / 2099 1440 / 1440
--- NOTE | 2024-05-08 12:05 | CM ---
Chart reviewed
Advancing diet - tolerating thus far
Will have ride at d/c
Plan - anticipate home no needs
[2024-05-08 15:32] VITALS: BP 118/62
--- NOTE | 2024-05-08 18:02 | W.DCSUMMARY ---
Discharge Summary
Discharge Data
Date of Admission: 05/05/24
Date of Discharge: 05/08/24
-
Pending Results: No
Hospital Course
63-year-old male past medical history of hypertension, hyperlipidemia, history of hernia repair in the past who is presented with nausea vomiting. Patient underwent abdominal CAT scan which showed bowel obstruction. General surgery was consulted.
Bowel obstruction was suspected secondary to adhesions. Patient had NG tube placement with significant biliary output. Patient was maintained on IV fluids. Patient with bowel rest. Patient had bowel movements. Patient eventually underwent
removal of NG tube. Patient was passing flatulence and having bowel movements. Diet was advanced from clears to full's. Patient was tolerating full diet and thus was advanced to low residue diet. Patient without any nausea and vomiting. Patient
without any abdominal pain. Patient was tolerating low residue diet will be discharged home.
Discharge Plan
-
Patient Disposition: Home (Routine Discharge)
Discharge Diagnosis/Procedures: Small bowel obstruction
Condition: Fair
Diet: Low Residue
Activity: As tolerated
Driving Restrictions: As prior to admission
Referrals:
Zion Machado MD [Family Provider] - in less than 1 week
Prescriptions:
Continued
atorvastatin 20 mg Tablet
20 mg PO DAILY
metoprolol succinate 25 mg Tablet Extended Release 24 Hr
25 mg PO DAILY
omeprazole 20 mg Tablet,Delayed Release (Dr/Ec)
20 mg PO DAILY
Creon 36,000-114,000- 180,000 unit Capsule,Delayed Release(Dr/Ec)
2 cap PO TID
Patient Comments:
take 2 caps by mouth with each meal and 1 cap by moouth with snack
Discharge Orders:
Discharge Patient (As Directed); Ordered 05/08/24
Ordered By: Guido Machado
Discharge Date and Time
Discharge Date/Time: 05/08/24 18:55
Print Language: SPANISH
--- NOTE | 2024-05-08 18:41 | PTCARENOTE ---
pt and asking for D/C Pt tolerated low res diet. denies pain, no n/v/d. s/w attending. d/c order obtained. IVs removed
== END 2024-05-08 18:55 | disposition home or self-care (01) | DRG 390 ==
LOC: 2 SOUTH 21:14
PROVIDERS: Emergency Medicine; Nurse Practitioner Family; ADMITTING PHYSICIAN Hospitalist; ATTENDING PHYSICIAN Hospitalist; EMERGENCY PHYSICIAN Emergency Medicine; FAMILY PHYSICIAN Family Medicine; OTHER PHYSICIAN Surgery
DX: K56.50 Intestinal adhesions [bands], unspecified as to partial versus complete obstruction (principal); I10 Essential (primary) hypertension; E78.00 Pure hypercholesterolemia, unspecified; Z87.891 Personal history of nicotine dependence; Z79.899 Other long term (current) drug therapy
CPT/HCPCS: 71045; 74177; 80048; 80053; 81003; 83605; 83690; 83735; 85025; 85027; 96361; 96374; 96375; 96376; 99285; Q9967